=== PATIENT | male | born 2000 | race Hispanic/Latino ===

== ENCOUNTER 2021-01-19 15:41 | Emergency (ER) | payer OTHER ==
[~2021-01-19] VITALS: Ht 180.3 cm; Wt 112.0 kg
[2021-01-19] MEDS ORDERED: CEPHALEXIN 500 MG CAPSULE PO ONE (16:00)
[2021-01-19] MEDS ORDERED: HYDROCODONE/ACETAMINOPHEN 10/325 MG TAB PO ONE (16:00)
[2021-01-19] MEDS ORDERED: TETANUS/DIPHTHERIA TOXOID [ADULT] 0.5 ML VIAL IM ONE (16:00)
[2021-01-19] MEDS ORDERED: LIDOCAINE HCL MPF 1% 5ML VIAL ONE (16:25)
[2021-01-19] MEDS ORDERED: LIDOCAINE 1%-EPI 1:100,000 20 ML VIAL IJ SCH (16:30)
[2021-01-19] MEDS ORDERED: IBUP-1552 PO (17:04)
[2021-01-19] MEDS ORDERED: CEPH500B PO (17:04)
[2021-01-19 17:20] VITALS: BP 120/67
== END 2021-01-19 17:31 | disposition home or self-care (01) ==
LOC: EDH 15:41
DX: S60.032A Contusion of left middle finger without damage to nail, initial encounter (principal); S60.413A Abrasion of left middle finger, initial encounter; W23.0XXA Caught, crushed, jammed, or pinched between moving objects, initial encounter; X58.XXXA Exposure to other specified factors, initial encounter; Y93.89 Activity, other specified; Y92.89 Other specified places as the place of occurrence of the external cause; Y99.8 Other external cause status
CPT/HCPCS: 64450; 73130; 90471; 90714; 99284; J3490